=== PATIENT | female | born 1980 ===

== ENCOUNTER 2020-01-10 18:35 | Emergency (ER) | payer MEDICAID ==
[~2020-01-10] VITALS: Ht 165.1 cm; Wt 68.2 kg
[2020-01-10 18:36] VITALS: BP 114/60
[2020-01-10] MEDS ORDERED: CEPH250T PO (19:03)
[2020-01-10] MEDS ORDERED: HYDR28CR14 TOP (19:03)
== END 2020-01-10 19:10 | disposition home or self-care (01) ==
LOC: ER 18:37
DX: S70.361A Insect bite (nonvenomous), right thigh, initial encounter (principal); Z91.040 Latex allergy status; Z79.2 Long term (current) use of antibiotics; Z79.899 Other long term (current) drug therapy; W57.XXXA Bitten or stung by nonvenomous insect and other nonvenomous arthropods, initial encounter; Y93.89 Activity, other specified; Y92.89 Other specified places as the place of occurrence of the external cause; Y99.8 Other external cause status
CPT/HCPCS: 99283